=== PATIENT | male | born 1980 | race Two or more races ===

== ENCOUNTER 2017-05-19 13:38 | Emergency (ER) | payer SELFPAY ==
[~2017-05-19] VITALS: Ht 172.7 cm; Wt 79.9 kg
[2017-05-19 15:29] VITALS: BP 132/81
== END 2017-05-19 15:32 | disposition home or self-care (01) ==
LOC: ED 15:10
DX: L30.1 Dyshidrosis [pompholyx] (principal); R20.2 Paresthesia of skin; M54.2 Cervicalgia; Z87.891 Personal history of nicotine dependence
CPT/HCPCS: 72050; 99284